=== PATIENT | female | born 1990 | race Caucasian/White ===

== ENCOUNTER → 2018-09-15 | Emergency (ER) | payer OTHER ==
[~2018-09-15] VITALS: Ht 165.1 cm; Wt 65.8 kg
== END | disposition home or self-care (01) ==
LOC: ER 17:27
DX: R10.2 Pelvic and perineal pain (principal)

== ENCOUNTER 2018-10-20 08:55 | Day surgery (SDC) | payer OTHER ==
[~2018-10-20 08:55] MED LIST: CLONAZEPAM0.5 MG PO
[2018-10-20] MEDS ORDERED: CODE1TAB37 PO (13:52)
== END 2018-10-20 18:05 | disposition home or self-care (01) ==
LOC: CIR.AMB 08:55
DX: N80.1 Endometriosis of ovary (principal); N85.01 Benign endometrial hyperplasia; N73.6 Female pelvic peritoneal adhesions (postinfective)

== ENCOUNTER → 2020-01-23 | Outpatient (CLI) | payer OTHER ==
[~2020-01-23] MED LIST changes: +CODE1TAB37 PO
== END | disposition home or self-care (01) ==
LOC: RAD 13:50
PROVIDERS: ATTEND Internal Medicine Gastroenterology
DX: M25.562 Pain in left knee (principal)

== ENCOUNTER → 2020-01-25 | Outpatient (CLI) | payer OTHER | END | disposition home or self-care (01) | LOC: MRI 13:48 | PROVIDERS: ATTEND Orthopaedic Surgery | DX: M25.562 Pain in left knee (principal) | CPT/HCPCS: 73721 ==

== ENCOUNTER 2021-01-09 06:54 | Day surgery (SDC) | payer OTHER ==
[2021-01-09] MEDS ORDERED: MORGIDOX100 MG PO (09:37)
== END 2021-01-09 13:55 | disposition home or self-care (01) ==
LOC: CIR.AMB 06:54 → OB/GYN 10:35 → CIR.AMB 10:37 → EDSTATUS 10:37 → CIR.AMB 11:01
PROVIDERS: ATTEND Obstetrics & Gynecology
DX: O02.1 Missed abortion (principal); Z20.822 Contact with and (suspected) exposure to COVID-19

== ENCOUNTER 2022-04-23 08:49 | Outpatient (CLI) | payer OTHER ==
[~2022-04-23 08:49] MED LIST changes: +MORGIDOX100 MG PO
== END 2022-04-23 10:45 | disposition home or self-care (01) ==
LOC: PRENATAL 08:49
PROVIDERS: ATTEND Obstetrics & Gynecology Maternal & Fetal Medicine
DX: O35.9XX0 Maternal care for (suspected) fetal abnormality and damage, unspecified, not applicable or unspecified (principal); O35.3XX0 Maternal care for (suspected) damage to fetus from viral disease in mother, not applicable or unspecified; Z3A.22 22 weeks gestation of pregnancy

== ENCOUNTER 2022-07-02 10:38 | Outpatient (CLI) | payer OTHER | END 2022-07-02 11:45 | disposition home or self-care (01) | LOC: PRENATAL 10:38 | PROVIDERS: ATTEND Obstetrics & Gynecology Maternal & Fetal Medicine | DX: O26.849 Uterine size-date discrepancy, unspecified trimester (principal); O35.9XX0 Maternal care for (suspected) fetal abnormality and damage, unspecified, not applicable or unspecified; O36.8199 Decreased fetal movements, unspecified trimester, other fetus; Z3A.32 32 weeks gestation of pregnancy ==

== ENCOUNTER 2022-08-05 04:11 | Outpatient (CLI) | payer OTHER ==
[~2022-08-05] VITALS: Ht 165.1 cm; Wt 68.9 kg
== END 2022-08-05 10:10 | disposition home or self-care (01) ==
LOC: OBS/DEL 04:11
PROVIDERS: ATTEND Obstetrics & Gynecology
DX: O47.1 False labor at or after 37 completed weeks of gestation (principal); Z3A.37 37 weeks gestation of pregnancy; Z88.5 Allergy status to narcotic agent; Z88.0 Allergy status to penicillin

== ENCOUNTER 2022-08-17 13:00 | Inpatient (IN) | payer OTHER ==
[~2022-08-17] VITALS: Ht 165.1 cm; Wt 82.1 kg
[2022-08-20] MEDS ORDERED: PRENATAL TABLE1 EAC1 PO (06:30)
[2022-08-22] MEDS ORDERED: NAPR500T14 PO (08:41)
== END 2022-08-22 12:14 | disposition home or self-care (01) | DRG 807 ==
LOC: LDR 08-20 05:34 → OB/GYN 08-20 05:34 → O/R 08-20 13:52 → OB/GYN 08-20 14:45
PROVIDERS: Student in an Organized Health Care Education/Training Program; ADMIT Obstetrics & Gynecology; ATTEND Obstetrics & Gynecology
PROC: 10D17Z9 Manual Extraction of Products of Conception, Retained, Via Natural or Artificial Opening (ICD-10-PCS; 2022-08-20)
PROC: 4A1HXCZ Monitoring of Products of Conception, Cardiac Rate, External Approach (ICD-10-PCS; 2022-08-20)
PROC: 10E0XZZ Delivery of Products of Conception, External Approach (ICD-10-PCS; principal; 2022-08-20 17:00)
DX: O73.0 Retained placenta without hemorrhage (principal); Z37.0 Single live birth; Z3A.39 39 weeks gestation of pregnancy; Z20.822 Contact with and (suspected) exposure to COVID-19

== ENCOUNTER 2024-10-02 12:30 | Emergency (ER) | payer OTHER ==
[~2024-10-02] VITALS: Ht 165.1 cm; Wt 61.2 kg
[~2024-10-02 12:30] MED LIST changes: +NAPR500T14 PO; +PRENATAL TABLE1 EAC1 PO
[2024-10-02] MEDS ORDERED: CLONAZEPAM1 M1 PO (12:56)
[2024-10-02] MEDS ORDERED: KETOROLAC TROMETHAMINE 30 MG VIAL IV ONE (13:30)
[2024-10-02 15:56] LABS: BASO % 0.6 % (0.1-1.2); EOS # 0.14 (0.04-0.54); EOS % 1.5 % (0.7-7.0); HEMATOCRIT 38.7 % (34.1-44.9); HEMOGLOBIN 12.9 g/dL (11.2-15.7); LYMPH # 3.37 (1.18-3.74); LYMPH % 35.5 % (19.3-53.1); MEAN CORPUSCULAR HEMOGLOBIN 29.2 pg (25.6-32.2); MONO # 0.67 (0.24-0.82); MONO % 7.1 % (4.7-12.5); NEUT # 5.24 (1.56-6.13); NEUT % 55.2 % (34.0-71.1); PLATELET COUNT 195 K/uL (163-369); RED BLOOD COUNT 4.42 M/uL (3.93-5.22); RED CELL DISTRIBUTION WIDTH 13.8 % (11.6-14.4)
[2024-10-02 16:00] LABS: URINE APPEARANCE Clear; URINE BILIRRUBIN Negative (NEGATIVE); URINE BLOOD Negative; URINE COLOR Dark Yellow; URINE GLUCOSE Negative (NEGATIVE); URINE KETONE 15 (NEGATIVE); URINE LEUKOCYTE Trace; URINE NITRATE Negative; URINE PROTEIN Negative (NEGATIVE)
[2024-10-02 16:04] LABS: URINE BACTERIA 483.6 uL (0.0-1933); URINE EPITHELIAL CELLS 21.3 uL (0.0-38.8); URINE RBC 7.4 uL (0.0-20.8); URINE WBC 21.2 uL (0.0-23.2)
[2024-10-02 16:07] LABS: URINE CAST 1.02 uL (0.0-1.40)
[2024-10-02 16:14] LABS: CALCIUM 8.9 mg/dL (8.5-10.1); CREATININE SERUM 0.6 mg/dL (0.55-1.02); GFR 113.76; POTASSIUM 3.99 mEq/L (3.5-5.1)
[2024-10-02] MEDS ORDERED: DICLOFENAC SODI75 MG PO (19:09)
== END 2024-10-02 19:22 | disposition home or self-care (01) ==
LOC: ER 12:30
PROVIDERS: Emergency Medicine
DX: R10.9 Unspecified abdominal pain (principal)
CPT/HCPCS: 36415; 74177; Q9965

== ENCOUNTER 2024-10-25 12:23 | Outpatient (CLI) | payer OTHER ==
[~2024-10-25 12:23] MED LIST changes: +CLONAZEPAM1 M1 PO; +DICLOFENAC SODI75 MG PO
== END 2024-10-25 12:33 | disposition home or self-care (01) ==
LOC: MRI 12:23
PROVIDERS: ATTEND Obstetrics & Gynecology
DX: R80.1 Persistent proteinuria, unspecified (principal); R10.2 Pelvic and perineal pain
CPT/HCPCS: 72197

== ENCOUNTER 2025-01-05 07:30 | Inpatient (IN) | payer OTHER ==
[~2025-01-05] VITALS: Ht 165.1 cm; Wt 60.3 kg
[2025-01-05 09:57] LABS: BASO % 0.6 % (0.1-1.2); EOS # 0.09 (0.04-0.54); EOS % 1.5 % (0.7-7.0); LYMPH # 2.07 (1.18-3.74); LYMPH % 33.4 % (19.3-53.1); MEAN PLATELET VOLUME 10.50 fl (9.4-12.4); MONO # 0.45 (0.24-0.82); MONO % 7.3 % (4.7-12.5); NEUT # 3.54 (1.56-6.13); NEUT % 57.0 % (34.0-71.1); RED CELL DISTRIBUTION WIDTH 14.1 % (11.6-14.4)
[2025-01-05 10:15] LABS: URINE APPEARANCE Clear; URINE BILIRRUBIN Negative (NEGATIVE); URINE BLOOD Large; URINE COLOR Yellow; URINE GLUCOSE Negative (NEGATIVE); URINE KETONE Negative (NEGATIVE); URINE LEUKOCYTE Negative; URINE NITRATE Negative; URINE PROTEIN Negative (NEGATIVE); URINE UROBILINOGEN 1.0 E.U./dl
[2025-01-05 10:18] LABS: URINE BACTERIA 157.1 uL (0.0-1933); URINE EPITHELIAL CELLS 11.9 uL (0.0-38.8); URINE RBC 149.1 uL (0.0-20.8); URINE WBC 3.2 uL (0.0-23.2)
[2025-01-05 10:22] LABS: URINE CAST 0.14 uL (0.0-1.40)
[2025-01-05 10:30] LABS: INR 1.01
[2025-01-05 10:56] LABS: ALT/SGPT 22.0 U/L (12-78); AST/SGOT 13.0 U/L (15-37); BILIRUBIN TOTAL 0.94 mg/dL (0.3-1.2); BUN CREA RATIO 16.0 (7.0-25.0); CREATININE SERUM 0.62 mg/dL (0.55-1.02); GFR 109.54; GLOBULINA 3.6 G/DL (2.4-3.5); GLUCOSE FASTING 77.0 mg/dL (65-100); OSMOLALITY SERUM 275.0 MOSM/KG (275-295)
[2025-01-11] MEDS ORDERED: METRONIDAZOLE/SODIUM CHLORIDE 500 MG/100 ML PIGGYBACK IV ONE (11:11)
[2025-01-11] MEDS ORDERED: CEFOXITIN SODIUM 2,000 MG VIAL IV ONE (11:12)
[2025-01-11] MEDS ORDERED: POVIDONE-IODINE 118 ML BOTT TOP ONE (12:29)
[2025-01-11] MEDS ORDERED: SURGIFLO APPLICATOR 1 EACH APPL TOP ONE ×2 (15:26→15:45)
[2025-01-11] MEDS ORDERED: HEMOSTATIC MATRIX 1 KIT KIT TOP ONE ×2 (15:26→15:45)
[2025-01-11] MEDS ORDERED: RINGERS SOLUTION,LACTATED 1,000 ML IV SCH (17:00)
[2025-01-11] MEDS ORDERED: MORPHINE SULFATE 4 MG/ML CARTRIDGE IV PRN (17:00)
[2025-01-11] MEDS ORDERED: ONDANSETRON HCL 2 MG/ML VIAL IV PRN (17:00)
[2025-01-11] MEDS ORDERED: KETOROLAC TROMETHAMINE 30 MG VIAL IV PRN (17:15)
[2025-01-11] MEDS ORDERED: SIMETHICONE 125 MG CAPSULE PO SCH (18:00)
[2025-01-11] MEDS ORDERED: FAMOTIDINE/PF 20 MG/2 ML VIAL IV SCH (21:00)
[2025-01-11 21:04] VITALS: BP 102/69
[2025-01-11 23:18] LABS: BASO % 0.1 % (0.1-1.2); EOS # 0.00 (0.04-0.54); EOS % 0.0 % (0.7-7.0); LYMPH # 0.64 (1.18-3.74); LYMPH % 4.7 % (19.3-53.1); MEAN PLATELET VOLUME 10.60 fl (9.4-12.4); MONO # 0.75 (0.24-0.82); MONO % 5.5 % (4.7-12.5); NEUT # 12.24 (1.56-6.13); NEUT % 89.3 % (34.0-71.1); RED CELL DISTRIBUTION WIDTH 13.6 % (11.6-14.4)
[2025-01-12 02:32] VITALS: BP 100/60
[2025-01-12 06:26] VITALS: BP 95/60
[2025-01-12 08:00] VITALS: BP 90/55
[2025-01-12 09:00] LABS: BASO % 0.3 % (0.1-1.2); EOS # 0.04 (0.04-0.54); EOS % 0.4 % (0.7-7.0); LYMPH # 2.01 (1.18-3.74); LYMPH % 21.2 % (19.3-53.1); MEAN PLATELET VOLUME 10.20 fl (9.4-12.4); MONO # 0.84 (0.24-0.82); MONO % 8.9 % (4.7-12.5); NEUT # 6.53 (1.56-6.13); NEUT % 69.0 % (34.0-71.1); RED CELL DISTRIBUTION WIDTH 13.9 % (11.6-14.4)
[2025-01-12] MEDS ORDERED: ACETAMINOPHEN-1 EAC2 PO (09:21)
[2025-01-12] MEDS ORDERED: NAPROXEN500 MG PO (09:22)
== END 2025-01-12 10:08 | disposition home or self-care (01) | DRG 743 ==
LOC: SURH 01-11 07:30 → O/R 01-11 10:19 → SURH 01-11 15:30 → OB/GYN 01-11 19:21
PROVIDERS: ADMIT Obstetrics & Gynecology; ATTEND Obstetrics & Gynecology
PROC: 0UT7FZZ Resection of Bilateral Fallopian Tubes, Via Natural or Artificial Opening With Percutaneous Endoscopic Assistance (ICD-10-PCS; 2025-01-11)
PROC: 0WQF4ZZ Repair Abdominal Wall, Percutaneous Endoscopic Approach (ICD-10-PCS; 2025-01-11)
PROC: 0TJB8ZZ Inspection of Bladder, Via Natural or Artificial Opening Endoscopic (ICD-10-PCS; 2025-01-11)
PROC: 0UT9FZZ Resection of Uterus, Via Natural or Artificial Opening With Percutaneous Endoscopic Assistance (ICD-10-PCS; principal; 2025-01-11 15:30)
DX: D25.9 Leiomyoma of uterus, unspecified (principal); N92.1 Excessive and frequent menstruation with irregular cycle; N84.0 Polyp of corpus uteri; N80.03 Adenomyosis of the uterus; N72 Inflammatory disease of cervix uteri; N80.203 Endometriosis of bilateral fallopian tubes, unspecified depth; K42.9 Umbilical hernia without obstruction or gangrene